=== PATIENT | female | born 1970 | race American Indian/Alaskan Native ===

== ENCOUNTER 2017-06-21 11:45 | Outpatient (CLI) | payer OTHER ==
--- NOTE | 2017-06-17 09:19 | XRay Report ---
RIGHT HAND: Pain. The bony architecture is intact. Bony alignment is normal. No soft tissue abnormalities are seen. The joint spaces appear preserved. IMPRESSION: Normal right hand.
--- NOTE | 2017-06-21 13:40 | XRay Report ---
Cervical spine series, 5 views. History: Neck pain. Findings: There is mild narrowing of the disc space at C5-6 with mild anterior hypertrophic changes. There is straightening of the lordotic curvature, but no evidence of subluxation. The neuroforamina are patent. The odontoid is intact. No prevertebral soft tissue edema is seen. Impression: Mild spondylosis at C5-6.
== END 2017-06-21 11:46 | disposition home or self-care (01) ==
LOC: SPVIMAG 11:45
PROVIDERS: ATTEND Orthopaedic Surgery
DX: M47.892 Other spondylosis, cervical region (principal); M25.541 Pain in joints of right hand
CPT/HCPCS: 72040